=== PATIENT | female | born 1935 | race Two or more races ===

== ENCOUNTER → 2016-05-11 | Outpatient (CLI) | payer OTHER, MEDICARE | LOC: BHFA 09:00 | PROVIDERS: ATTEND Internal Medicine Cardiovascular Disease | DX: I49.5 Sick sinus syndrome (principal) ==

== ENCOUNTER → 2016-05-17 | Outpatient (CLI) | payer OTHER, MEDICARE | LOC: BHCLAF 09:30 | PROVIDERS: ATTEND Internal Medicine Cardiovascular Disease | DX: I47.1 Supraventricular tachycardia (principal) | CPT/HCPCS: 93005-PO ==

== ENCOUNTER 2016-05-23 13:54 | Day surgery (SDC) | payer OTHER, MEDICARE ==
[2016-05-23] MEDS ORDERED: fentaNYL 100 MCG/2 ML INJ IVP ONE (13:59)
[2016-05-23] MEDS ORDERED: MIDAZOLAM 2 MG/2 ML VIAL IVP ONE (13:59)
[2016-05-23] MEDS ORDERED: NS 500 ML IV ONE (13:59)
[2016-05-23] MEDS ORDERED: PROPOFOL 200 MG/20 ML VIAL IVP ONE (13:59)
--- NOTE | 2016-05-23 15:10 | GCON ---
[f rep st] CONSULTATION The patient came to [facility] today for cardioversion. She has had a history of atrial fibrillation, atrial tachycardia. She was in the office and had atr ial tachycardia or possibly atrial flutter at a rate of 150. She was lightheaded. She has been taking her medications and has been put on sotalol 120 twice a day. Her long history includes amiodarone pulmonary toxicity, asthma, atrial fibrillation, atrial tachyca rdia, coronary disease, history of smoking, hyperlipidemia, hypertension, hypoxemia, interstitial levy ng disease, sick sinus syndrome, pacemaker, status post PCI. She has had an ablation for atrial tachycardia in the past. She is taking her medications without complications. At this point in time, I offered to do a cardioversion. She has been told by the staff that because she has no one to drive her she would have to spend the night in the hospital. She does not want t o do that. So she feels well enough she says to go home, come back tomorrow when she will have frie nds pick her up and drop her off and that is what she wants to do. She has no symptoms or findings suggestive of heart failure at this time. She is not having an acute coronary syndrome. She is not lightheaded or dizzy. She has not had syncope or near syncope, and she prefers to go home. So she is going to go home now and come back tomorrow morning. 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 Does n ot miss any doses for over 2 years. Does not want a transesophageal echocardiographic study. We wi ll do a cardioversion with Anesthesia present in the morning when she arranges her rides. I have informed her that she should call 911 if she deteriorates in any way. She has had this probl em since Monday. She has been having ongoing arrhythmias for years. She does not think there is an ything going to change or get worse and will come see us tomorrow unless something does and she need s to come in. I have reviewed this with the nursing staff. At this point in time, there are no bed s in the hospital so if we did cardiovert her, she would not easily find a bed. I do not think that is a reason not to do her as we could find a bed, we could hold her somewhere un til such time as a bed would be available, and I have reviewed that with her that we certainly are c apable of doing this cardioversion today. She understands but does not want to spend the night here and wants to schedule it when she will have friends helping her. All her questions have been answe red. /[id number]/MODL
== END 2016-05-23 15:15 | disposition home or self-care (01) ==
LOC: FCATH 13:54
PROVIDERS: ATTEND Internal Medicine Interventional Cardiology
DX: I48.91 Unspecified atrial fibrillation (principal); I47.1 Supraventricular tachycardia; J45.909 Unspecified asthma, uncomplicated; I25.10 Atherosclerotic heart disease of native coronary artery without angina pectoris; E78.5 Hyperlipidemia, unspecified; I10 Essential (primary) hypertension; Z95.0 Presence of cardiac pacemaker; Z87.891 Personal history of nicotine dependence; Z53.20 Procedure and treatment not carried out because of patient's decision for unspecified reasons

== ENCOUNTER 2016-05-24 12:38 | Day surgery (SDC) | payer OTHER, MEDICARE ==
[2016-05-24] MEDS ORDERED: PROPOFOL 200 MG/20 ML VIAL IVP ONE (12:39)
[2016-05-24] MEDS ORDERED: NS 500 ML IV ONE (12:39)
[2016-05-24] MEDS ORDERED: fentaNYL 100 MCG/2 ML INJ IVP ONE (12:39)
[2016-05-24] MEDS ORDERED: MIDAZOLAM 2 MG/2 ML VIAL IVP ONE (12:39)
--- NOTE | 2016-05-24 13:01 | CPEKG ---
Heart Rate: 150 RR Interval: 400 QRSD Interval: 94 QT Interval: 336 QTC Interval: 531 P [place]: 0 QRS [place]: -28 T Wave [place]: 99 EKG Severity - ABNORMAL ECG - EKG Impression: SVT - QUERY AVNRT EKG Impression: PROBABLE LVH WITH SECONDARY REPOL ABNRM EKG Impression: PROLONGED QT INTERVAL Electronically Signed By: Zain Lala 24-May-2016 16:51:08
[2016-05-24 13:24] LABS: INR 1.33 (0.83-1.16); PROTIME(PATIENT) 16.5 SEC (12.0-15.0)
[2016-05-24 13:25] LABS: APTT 50.1 SEC (23.0-38.0)
[2016-05-24 13:38] LABS: ANION GAP 13 mEq/L (8-16); CALCIUM 9.6 mg/dL (8.5-10.4); CARBON DIOXIDE 23 mEq/l (22-31); CHLORIDE 106 mEq/L (97-110); CREATININE 0.8 mg/dL (0.6-1.0); GLOMERULAR FILTRATION RATE > 60; GLUCOSE 92 mg/dL (70-100); MAGNESIUM 2.1 mg/dL (1.6-2.3); POTASSIUM 4.2 mEq/L (3.5-5.2); SODIUM 142 mEq/L (134-144)
[2016-05-24] MEDS ORDERED: ATROPINE SULFATE 1 MG/10 ML SYR ONE (13:48)
[2016-05-24] MEDS ORDERED: DIAZEPAM 5 MG TAB PO ONE (14:00)
--- NOTE | 2016-05-24 14:42 | CPEKG ---
Heart Rate: 70 RR Interval: 857 P-R Interval: 164 QRSD Interval: 100 QT Interval: 452 QTC Interval: 488 P [place]: 0 QRS [place]: -20 T Wave [place]: 57 EKG Severity - ABNORMAL ECG - EKG Impression: ATRIAL-PACED COMPLEXES EKG Impression: BORDERLINE LEFT AXIS DEVIATION EKG Impression: BORDERLINE PROLONGED QT INTERVAL EKG Impression: PACING IS NEW IN COMPARISON TO PRIOR ECG (WITH WHAT APPEARS TO BE SVT) Electronically Signed By: Zain Lala 24-May-2016 16:51:39
--- NOTE | 2016-05-24 15:38 | CPIP ---
[f rep st] INVASIVE CARDIAC PROCEDURE INDICATIONS: The patient had an atrial tachycardia. PROCEDURE: The procedure was overdrive pacing. The patient had been given 5 of Valium. She had given informed consent for overdrive pacing and car dioversion. With Dr. Fleming present and the pacemaker customer contact representative, we set coupling at 330 msec, followed by an S I at 250 msec, and we did overdrive pacing. The patient converted on the 3rd burst of 20 seconds du ration to normal sinus rhythm. The patient feels fine. The patient was given no other conscious se dation other than the Valium. She is awake and alert. She is going to be walking around, and if sh e feels fine, she will be discharged in a few minutes. She is eager to leave the hospital and seems totally normal. There have been no neurologic consequences from this. The patient was going to get a cardioversion if necessary. There was no transesophageal echocardiogram considered because patient did not want one, and she has not missed a Pradaxa dose in over 2 years. All her questions have been answered. She will follow up with Dr. Greene in 10 days. /[id number]/MODL
== END 2016-05-24 15:01 | disposition home or self-care (01) ==
LOC: FCATH 12:38
PROVIDERS: ATTEND Internal Medicine Cardiovascular Disease
PROC: 5A2204Z Restoration of Cardiac Rhythm, Single (ICD-10-PCS; principal; 2016-05-24)
DX: I47.1 Supraventricular tachycardia (principal); I48.91 Unspecified atrial fibrillation; I25.10 Atherosclerotic heart disease of native coronary artery without angina pectoris; Z95.5 Presence of coronary angioplasty implant and graft; I10 Essential (primary) hypertension; E78.5 Hyperlipidemia, unspecified; I49.5 Sick sinus syndrome; Z95.0 Presence of cardiac pacemaker; J45.909 Unspecified asthma, uncomplicated; F32.9 Major depressive disorder, single episode, unspecified; J84.9 Interstitial pulmonary disease, unspecified; Z87.891 Personal history of nicotine dependence; Z79.82 Long term (current) use of aspirin; Z79.01 Long term (current) use of anticoagulants
CPT/HCPCS: J0461; J2704

== ENCOUNTER 2016-06-02 07:31 | Observation (INO) | payer OTHER, MEDICARE ==
[2016-06-02] MEDS ORDERED: MIDAZOLAM 2 MG/2 ML VIAL IVP ONE (07:35)
[2016-06-02] MEDS ORDERED: NS 1,000 ML IV ONE (07:35)
[2016-06-02] MEDS ORDERED: LIDOCAINE 1% 30 ML SDV ONE (07:44)
[2016-06-02] MEDS ORDERED: ISOPROTERENOL HCL 0.2 MG/ML 5ML AMP ONE (07:45)
[2016-06-02] MEDS ORDERED: BUPIVACAINE 0.5% 30 ML SDV ONE (07:45)
[2016-06-02] MEDS ORDERED: HEPARIN 10,000 UNIT/10 ML MDV ONE (07:45)
[2016-06-02 08:13] LABS: % IMMATURE GRANULYOCYTES 0.3 % (0.0-1.1); ABSOLUTE IMMATURE GRANULOCYTES 0.02 10^3/uL (0.00-0.10); ADD DIFF? NO; ADD MORPH? NO; ADD SCAN? NO; ATYPICAL LYMPHOCYTE FLAG 0 (0-99); FRAGMENT RBC FLAG 0 (0-99); HEMATOCRIT 41.1 % (38.0-47.0); HEMOGLOBIN 13.8 g/dL (12.6-16.3); LEFT SHIFT FLG 0 (0-99); LIPEMIA HEMOLYSIS FLAG 80 (0-99); MEAN CELL HEMOGLOBIN 31.4 pg (27.9-34.1); MEAN CELL HEMOGLOBIN CONCENTR. 33.6 g/dL (32.4-36.7); MEAN CELL VOLUME 93.4 fL (81.5-99.8); MEAN PLATELET VOLUME 10.3 fL (8.7-11.7); PLATELET CLUMPS FLAG 0 (0-99); PLATELET COUNT 237 10^3/uL (150-400); RED CELL DISTRIBUTION WIDTH 13.8 % (11.5-15.2)
[2016-06-02 08:23] LABS: INR 1.1 (0.83-1.16); PROTIME(PATIENT) 14.1 SEC (12.0-15.0)
[2016-06-02 08:24] LABS: APTT 29.6 SEC (23.0-38.0)
[2016-06-02 08:33] LABS: ANION GAP 13 mEq/L (8-16); CALCIUM 9.7 mg/dL (8.5-10.4); CARBON DIOXIDE 21 mEq/l (22-31); CHLORIDE 109 mEq/L (97-110); CREATININE 0.6 mg/dL (0.6-1.0); GLOMERULAR FILTRATION RATE > 60; GLUCOSE 97 mg/dL (70-100); POTASSIUM 4.3 mEq/L (3.5-5.2); SODIUM 143 mEq/L (134-144)
[2016-06-02] MEDS ORDERED: PROPOFOL 200 MG/20 ML VIAL ONE (09:23)
[2016-06-02] MEDS ORDERED: fentaNYL 100 MCG/2 ML INJ ONE (09:23)
[2016-06-02] MEDS ORDERED: DEXAMETHASONE 4 MG/ML VIAL ONE (09:56)
[2016-06-02] MEDS ORDERED: ROCURONIUM 50 MG/5 ML VIAL ONE (09:56)
[2016-06-02] MEDS ORDERED: ONDANSETRON 4 MG/2 ML VIAL ONE (09:56)
[2016-06-02] MEDS ORDERED: SUGAMMADEX SODIUM 200 MG/2 ML VIAL IVP ONE (10:34)
--- NOTE | 2016-06-02 11:05 | CPEKG ---
Heart Rate: 137 RR Interval: 438 P-R Interval: 276 QRSD Interval: 90 QT Interval: 324 QTC Interval: 490 P [place]: 0 QRS [place]: -23 T Wave [place]: 89 EKG Severity - ABNORMAL ECG - EKG Impression: SINUS TACHYCARDIA EKG Impression: FIRST DEGREE AV BLOCK EKG Impression: PROBABLE LVH WITH SECONDARY REPOL ABNRM EKG Impression: BORDERLINE PROLONGED QT INTERVAL Electronically Signed By: Davy Recio 02-Jun-2016 15:00:00
[2016-06-02] MEDS ORDERED: ONDANSETRON 4 MG/2 ML VIAL IVP PRN (11:43)
[2016-06-02] MEDS ORDERED: OXYCODONE/APAP 5/325 TAB PO PRN (11:43)
[2016-06-02] MEDS ORDERED: ACETAMINOPHEN 325 MG TAB PO PRN (11:43)
[2016-06-02] MEDS ORDERED: ALBUTEROL 60 PUFFS/8 GM MDI IH PRN (11:45)
[2016-06-02] MEDS ORDERED: MONTELUKAST SODIUM 10 MG TAB PO PRN (11:45)
[2016-06-02] MEDS ORDERED: IPRATROPIUM 0.06% NASAL SPRAY EACHNARE PRN (11:45)
[2016-06-02 12:21] LABS: ANION GAP 7 mEq/L (8-16); CALCIUM 8.9 mg/dL (8.5-10.4); CARBON DIOXIDE 24 mEq/l (22-31); CHLORIDE 112 mEq/L (97-110); CREATININE 0.7 mg/dL (0.6-1.0); GLOMERULAR FILTRATION RATE > 60; GLUCOSE 93 mg/dL (70-100); MAGNESIUM 1.9 mg/dL (1.6-2.3); POTASSIUM 4.4 mEq/L (3.5-5.2); SODIUM 143 mEq/L (134-144)
[2016-06-02] MEDS ORDERED: CETIRIZINE 10 MG TAB PO PRN (12:22)
--- NOTE | 2016-06-02 14:32 | CPEKG ---
Heart Rate: 100 RR Interval: 600 QRSD Interval: 144 QT Interval: 424 QTC Interval: 547 QRS [place]: -8 T Wave [place]: 108 EKG Severity - ABNORMAL ECG - EKG Impression: A-V DUAL-PACED RHYTHM WITH SOME INHIBITION EKG Impression: LEFT BUNDLE BRANCH BLOCK Electronically Signed By: Davy Recio 02-Jun-2016 15:00:00
[2016-06-02] MEDS: DABIGATRAN ETEXILATE MESYL 150 MG CAP PO SCH (20:13)
[2016-06-02] MEDS: GEMFIBROZIL 600 MG TAB PO SCH (20:13)
[2016-06-02] MEDS ORDERED: MULTIVITAMINS 1 EACH TAB PO SCH (21:00)
[2016-06-02] MEDS ORDERED: ASCORBIC ACID 500 MG TAB PO SCH (21:00)
[2016-06-02] MEDS ORDERED: CALCIUM CARB W/VIT D 500 MG TAB PO SCH (21:00)
[2016-06-02] MEDS ORDERED: ATORVASTATIN CALCIUM 40 MG TAB PO SCH (21:00)
[2016-06-02] MEDS ORDERED: POTASSIUM CL 20 MEQ TAB PO SCH (21:00)
[2016-06-02] MEDS ORDERED: ASPIRIN 81 MG CHEWABLE TAB PO SCH (21:00)
[2016-06-02] MEDS ORDERED: CHOLECALCIFEROL VIT D3 1,000 UNITS TAB PO SCH (21:00)
[2016-06-03 04:41] LABS: % IMMATURE GRANULYOCYTES 0.3 % (0.0-1.1); ABSOLUTE IMMATURE GRANULOCYTES 0.02 10^3/uL (0.00-0.10); ADD DIFF? NO; ADD MORPH? NO; ADD SCAN? NO; ATYPICAL LYMPHOCYTE FLAG 0 (0-99); FRAGMENT RBC FLAG 0 (0-99); HEMOGLOBIN 12.3 g/dL (12.6-16.3); LEFT SHIFT FLG 0 (0-99); LIPEMIA HEMOLYSIS FLAG 80 (0-99); MEAN CELL HEMOGLOBIN 31.3 pg (27.9-34.1); MEAN CELL HEMOGLOBIN CONCENTR. 33.2 g/dL (32.4-36.7); MEAN CELL VOLUME 94.1 fL (81.5-99.8); MEAN PLATELET VOLUME 10.6 fL (8.7-11.7); PLATELET CLUMPS FLAG 0 (0-99); PLATELET COUNT 216 10^3/uL (150-400); RED BLOOD CELL COUNT 3.93 10^6/uL (4.18-5.33); RED CELL DISTRIBUTION WIDTH 13.4 % (11.5-15.2)
[2016-06-03 04:49] LABS: INR 1.29 (0.83-1.16); PROTIME(PATIENT) 16.1 SEC (12.0-15.0)
[2016-06-03 04:54] LABS: ANION GAP 8 mEq/L (8-16); CALCIUM 9.6 mg/dL (8.5-10.4); CARBON DIOXIDE 22 mEq/l (22-31); CHLORIDE 109 mEq/L (97-110); CREATININE 0.6 mg/dL (0.6-1.0); GLOMERULAR FILTRATION RATE > 60; GLUCOSE 111 mg/dL (70-100); POTASSIUM 4.5 mEq/L (3.5-5.2); SODIUM 139 mEq/L (134-144)
[2016-06-03 05:05] LABS: CREATINE KINASE-MB FRACTION 0.84 ng/mL (0-3.19); TROPONIN I 0.014 ng/mL (0-0.034)
[2016-06-03 07:35] VITALS: BP 113/69; PULSE 73; RESP 15; TEMP 99; O2SAT 94
[2016-06-03] MEDS: DABIGATRAN ETEXILATE MESYL 150 MG CAP PO SCH (08:03)
[2016-06-03] MEDS: GEMFIBROZIL 600 MG TAB PO SCH (08:04)
[2016-06-03] MEDS ORDERED: FUROSEMIDE 20 MG TAB PO SCH (09:00)
[2016-06-03] MEDS ORDERED: PARoxetine HCL 10 MG TAB PO SCH (09:00)
--- NOTE | 2016-06-03 11:19 | ECHO ---
[id number] + + [address] : : [place] [address] : : [phone] + + Adult Echocardiographic Report + ------+ :Name: CHANDU CHAN LStudy Date: 06/03/2016 09:16 AM : : Hospital Admission Number: [id number] Locatio n: 209: :: 1935 Gender: Female Height: 64 in : :Age: 80 yrs Race: [facility] Weight: 186 lb : :Reason For Study: Eval LV Fx : : BSA: 1.9 meters 2 : :History: Post EP : + ------+ MMode/2D Measurements \T\ Calculations IVSd: 1.0 cm LVIDd: 3.8 cm FS: 37.7 % Ao root diam: 3.5 cm LVPWd: 1.2 cm LVIDs: 2.4 cm EDV(Teich): 62.5 ml ACS: 1.8 cm ESV(Teich): 19.7 ml EF(Teich): 68.5 % Normal Measurement Values: + + :LVIDd (3.5-5.7cm) IVSd (0.6-1.1cm) LVPWd (0.6-1.1cm) Aortic Root (2.0-3.7cm)Left Atrium (1.5-4.0cm): :LV Vol(d) (76-115ml) LV Vol(s) (29-48ml) Ejec Fraction (50-65%)PV Adama (0.6- 1.2m/s) TV Adama (0.4-1.0m/s) : :MV E Adama (0.8-1.0m/s)MV A Adama (0.3-1.0m/s)LVOT Adama (0.7-1.2m/s) Asc Ao Adama ( 0.9-1.8m/s) : + + Doppler Measurements \T\ Calculations MV E max adama: Ao V2 max: LV V1 max: MR max adama: 110.6 cm/sec 158.4 cm/sec 94.3 cm/sec 381.6 cm/sec Ao max PG: LV V1 max PG: MR max P.0 mmHg 3.6 mmHg 58.3 mmHg PA V2 max: TR max adama: 80.1 cm/sec 314.9 cm/sec PA max P.6 mmHg TR max P.7 mmHg RAP systole: 5.0 mmHg RVSP(TR): 44.7 mmHg Left Ventricle The left ventricle is normal in size. There is mild concentric left ventricular hypertrophy. The left ventricular ejection fraction is normal. Tachycardia in the range of 100 BPM. No regional wall motion abnormalities noted. Right Ventricle There is a pacemaker lead in the right ventricle. The right ventricle is normal in size and function. Atria The left atrium is moderate to severely dilated. Right atrial size is normal. Mitral Valve The mitral valve is normal. There is no evidence of mitral valve prolapse. There is no mitral valve stenosis. There is mild mitral regurgitation. Tricuspid Valve There is mild tricuspid regurgitation. Right ventricular systolic pressure is 45mmHg. There is Doppler evidence for mild pulmonary hypertension. Aortic Valve The aortic valve is trileaflet. There is no aortic stenosis. Mild aortic regurgitation. Pulmonic Valve The pulmonic valve is normal in structure and function. There is no pulmonic valvular regurgitation. Great Vessels The aortic root is normal size. Pericardium/Pleural There is no pericardial effusion. Conclusion A complete two-dimensional transthoracic echocardiogram was performed (2D, M-mode, Doppler and color flow Doppler). There is mild concentric left ventricular hypertrophy. The left ventricular ejection fraction is normal. Tachycardia in the range of 100 BPM There is a pacemaker lead in the right ventricle. The right ventricle is normal in size and function. The left atrium is moderate to severely dilated. The mitral valve is normal. There is mild mitral regurgitation. There is mild tricuspid regurgitation. Right ventricular systolic pressure is 45mmHg. There is Doppler evidence for mild pulmonary hypertension. The aortic valve is trileaflet. Mild aortic regurgitation. There is no pericardial effusion. Final Reading Physician: Unique Pittman signed on 06/03/2016 11:18 AM Ordering Physician: David Greene Performed By: Marco Gonzalez, CS
--- NOTE | 2016-06-03 16:34 | GDS ---
[f rep st] DISCHARGE SUMMARY DISCHARGE DIAGNOSES: 1. Paroxysmal atrial fibrillation with rapid ventricular response, status post atrioventricular nod al ablation on this admission. 2. Sick sinus syndrome, status post permanent pacemaker. 3. History of coronary artery disease, with PCI to obtuse marginal and ramus intermedius in [place] . 4. 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 5. Dyslipidemia. 6. Hypertension. 7. Asthma. PROCEDURES: 1. , AV shelly ablation. 2. 06/02/2016, echocardiogram. BRIEF HISTORY: Please see dictated H and P from our office for complete details. In brief, the césar ent is a 80-year-old female with a history of AFib, status post pacemaker, and pulmonary vein isolat ion, with plus or minus atrial tachycardia ablation, who has had more atrial arrhythmias recently. S he has had 2 hospitalizations, but despite addition of sotalol as well as diltiazem, she has had tyrone oing fast heart rates. She, therefore, saw Dr. Greene in consultation, and opted for AV shelly ablation , which was performed on 06/02/2016. On day of discharge, patient denies any groin pain. She has not had chest pain or dyspnea. PHYSICAL EXAM ON DAY OF DISCHARGE: VITAL SIGNS: Blood pressure 113/69, heart rate of 73, respiratio ns 15, O2 saturation 94% on room air. GENERAL: She is a very pleasant female in no apparent distress . EYES: PERRL. HEART: Regular rate and rhythm. LUNGS: Clear. EXTREMITIES: Right groin site without e cchymosis or bruit auscultated. LABORATORY DATA: BMP with sodium 139, potassium 4.5, chloride 109, CO2 22, BUN 14, creatinine 0.6, glucose 111. CBC with WBC 7.6, hemoglobin 12.3, hematocrit 37, platelet count of 216. RESULTS PENDING: None. DIET: Per previous. ACTIVITY: Groin precautions reviewed. DISCHARGE MEDICATIONS: Please see med reconciliation for complete details. She is being discharged on her home medications. However, her sotalol and diltiazem have been stopped. She may continue her albuterol, cholecalciferol, Atrovent, Singulair, vitamin C, furosemide, calcium, aspirin, Lexis, P radaxa, Lipitor, potassium, Paxil, multivitamin, gemfibrozil. FOLLOWUP: 1. In [address] Greene. 2. [facility]. /[id number]/MODL
--- NOTE | 2016-06-03 16:35 | EPPROC ---
Electrophysiology Procedure Note: CATHETER MEDIATED ABLATION OF THE AV JUNCTION Procedures performed: [id number] AV node ablation Fluoroscopy INDICATION: Atrial fibrillation, unable to rate control despite maximally tolerated medical therapy Catheters & Anesthesia: The patient arrived in the Electrophysiology Laboratory in the fasting state. General sedation was administered by anesthesia staff. SAILAJA performed and is reported seperately. The right groin and left groin area were prepped and draped in the usual sterile manner. Appropriate non-invasive blood pressure, pulse oximetry and end-tidal CO2 monitoring was established. All catheters were placed percutaneously using the modified Seldinger technique and advanced into position under fluoroscopic guidance). At baseline the patient was noted to be in AT with HR of 140bpm, with ATP pt converted to SR 60bpm. A #7 Nepalese deflectable quadrapolar electrode catheter (2mm-5mm-2mm spacing) with 8 mm tip electrode was advanced to the right atrium. A total of 3 RF applications were delivered. RF#1 was applied in the area of the compact AV node. RF#2 was applied to the same area as RF#1. RF#3 was applied to the area of the fast AV shelly pathway. RF#4 was applied to the right midseptal tricuspid annulus. There was complete AV block after RF#2. Cessation of pacing revealed that there was junctional escape rhythm at a rate of 37bpm after administration of Isuprel. Pacemaker implantation was done previously. The pacemaker was programmed to a lower rate of 100 ppm to reduce the risk of sudden associated with torsades de pointes. The lower rate will gradually be reduced to 60 ppm after 1 month . Fluoroscopically pacemaker lead positions were unchanged after procedure Pacemaker thresholds and impedances were unchanged after the procedure The catheters were removed. The patient was transferred to the cardiovascular holding area in stable condition. Vascular access sheaths were removed in the holding area. There were no apparent complications. CONCLUSIONS: * Atrial tachycardia with rapid ventricular response which was converted to SR * Successful ablation of the AV junction producing complete AV block. * Junctional escape rhythm at a rate of 37 bpm. * No complications. Patient Problems: Problems Problem Status Onset Atrial tachycardia Acute Tachycardia Acute
== END 2016-06-03 11:12 | disposition home or self-care (01) ==
LOC: FCATH 07:31 → F2W 11:44
PROVIDERS: ADMIT Internal Medicine Cardiovascular Disease; ATTEND Internal Medicine Cardiovascular Disease
PROC: 02583ZZ Destruction of Conduction Mechanism, Percutaneous Approach (ICD-10-PCS; principal; 2016-06-02)
PROC: B245ZZ4 Ultrasonography of Left Heart, Transesophageal (ICD-10-PCS; principal; 2016-06-02)
DX: I48.0 Paroxysmal atrial fibrillation (principal); I48.92 Unspecified atrial flutter; I44.2 Atrioventricular block, complete; I25.10 Atherosclerotic heart disease of native coronary artery without angina pectoris; Z95.5 Presence of coronary angioplasty implant and graft; Z95.0 Presence of cardiac pacemaker
CPT/HCPCS: 93005; 93306; 93312; J1100; J1644; J2405; J2704; J3010

== ENCOUNTER → 2016-06-17 | Outpatient (CLI) | payer OTHER, MEDICARE | LOC: BHFA 14:30 | PROVIDERS: ATTEND Internal Medicine Cardiovascular Disease | DX: I47.1 Supraventricular tachycardia (principal); R00.2 Palpitations; Z95.0 Presence of cardiac pacemaker; I49.5 Sick sinus syndrome; Z86.79 Personal history of other diseases of the circulatory system ==

== ENCOUNTER → 2016-08-12 | Outpatient (CLI) | payer OTHER, MEDICARE | LOC: BHFA 10:30 | PROVIDERS: ATTEND Internal Medicine Cardiovascular Disease | DX: I47.1 Supraventricular tachycardia (principal) ==

== ENCOUNTER → 2016-10-13 | Outpatient (CLI) | payer OTHER, MEDICARE | LOC: BRMIMAGING 11:05 | PROVIDERS: ATTEND Family Medicine | DX: Z13.820 Encounter for screening for osteoporosis (principal); M81.0 Age-related osteoporosis without current pathological fracture ==

== ENCOUNTER → 2016-12-30 | Outpatient (CLI) | payer OTHER, MEDICARE | LOC: BRMIMAGING 13:46 | PROVIDERS: ATTEND Family Medicine | DX: Z12.31 Encounter for screening mammogram for malignant neoplasm of breast (principal) | CPT/HCPCS: G0202 ==